=== PATIENT | male | born 1945 | race African-American/Black ===

== ENCOUNTER 2021-05-29 05:57 | Emergency (ER) | payer OTHER, MEDICARE ==
[~2021-05-29] VITALS: Ht 172.7 cm; Wt 57.2 kg
[2021-05-29 06:10] VITALS: BP_SYST 131
--- NOTE | 2021-05-29 06:30 | NUR ---
Patient to ER bed 4 to gown for evaluation. Side rails up. Report given to Olena PAGAN.
--- NOTE | 2021-05-29 07:00 | NUR ---
Pt. bib with conerns of insomnia, pt. and states has not been able to sleep well for 10 nights, has been seeing psychiatrist for PTSD and involuntary tremors but arrived here today out of desperation from lack of sleep.
--- NOTE | 2021-05-29 07:05 | NUR ---
REECE Virgen at bedside examining patient.
[2021-05-29] MEDS ORDERED: ZOLP10TA2 PO (07:24)
--- NOTE | 2021-05-29 08:00 | NUR ---
Patient given written and verbal discharge instructions and verbalizes understanding. ER Dr. Whitt discussed with patient the results and treatment provided. Patient in stable condition. ID arm band removed. Rx of Angelita given. Patient educated on pain management and to follow up with PMD. Pain Scale 0. Opportunity for questions provided and answered. Medication side effect fact sheet provided.
[2021-05-29 08:04] VITALS: BP_SYST 131
== END 2021-05-29 08:00 | disposition home or self-care (01) ==
LOC: SED 05:57
DX: G47.00 Insomnia, unspecified (principal); F41.9 Anxiety disorder, unspecified; Z88.5 Allergy status to narcotic agent; Z79.899 Other long term (current) drug therapy
CPT/HCPCS: 99283